=== PATIENT | male | born 1995 | race Caucasian/White ===

== ENCOUNTER 2024-04-03 11:27 | Outpatient (CLI) | payer BC, SELFPAY ==
--- NOTE | ~2024-04-03 | CT_ITS ---
Non-contrast CT scan of the Abdomen and Pelvis Clinical indication: Abdominal pain Technique: 2.5 mm axial scans were obtained through the abdomen and pelvis without intravenous or or al contrast. Dose reduction technique was used on this scan by utilizing automated exposure control a nd iterative reconstruction technique. The dose-length product (DLP) was 391.81 mGy-cm. Findings: Images through the lung bases reveal no abnormalities. There is no evidence of renal or ureteral calculi. The kidneys and the ureters are nondilated. The liver, spleen, pancreas, gallbladder, and adrenals appear normal. There is no aortic aneurysm. There is no evidence of bowel obstruction. Images through the pelvis were performed. There is no evidence of ascites or lymphadenopathy. Urinary bladder unremarkable. No pelvic mass seen. No ascites. Impression: No significant abnormality seen. Reviewed, dictated and finalized at [facility]. Impression: No significant abnormality seen.
== END 2024-04-03 11:28 ==
LOC: MICIMG 11:28
PROVIDERS: PCP Emergency Medicine; Visit Provider Emergency Medicine
DX: R10.9 Unspecified abdominal pain (principal)
CPT/HCPCS: 74176

== ENCOUNTER 2024-05-05 01:23 | Day surgery (SDC) | payer BC, SELFPAY ==
[2024-04-27 09:22] VITALS: BMI 25.1
[2024-05-05 13:23] VITALS: BP 117/80; PULSE 92; RESP 16; TEMP 36; O2SAT 100
[2024-05-05] MEDS: LACTATED RINGERS 1,000 ML 150 ML IV CONT (13:46)
--- NOTE | 2024-05-05 13:54 | WPDANESEPPF ---
Anes - Initial Pre Proc Eval Procedure: Operation Date: 05/05/24 14:30 Proposed Procedures p Esophagogastroduodenoscopy & Colonoscopy - Sacha Vázquez MD Date/Time: 05/05/24 13:54 Surgeon: Sacha Vázquez MD Pre Op Diagnosis: Abdominal pain Patient Data Age: 28 Gender: M Height: 1.73 m Weight: 75.1 kg Last Vital Signs Temp 36.0 C L 05/05/24 13:23 Pulse 92 05/05/24 13:23 Resp 16 05/05/24 13:23 BP 117/80 05/05/24 13:23 Pulse Ox 100 05/05/24 13:23 O2 Del Method Room Air 05/05/24 13:23 Allergies Allergy/AdvReac Type Severity Reaction Status Date / Time No Known Allergies Allergy Verified 05/05/24 13:22 Home Medications Medication Instructions Recorded Confirmed Type sertraline 100 mg tablet See Rx Instructions .Route 12/27/23 05/05/24 Rx .COMPLEX #90 tabs dextroamphetamine-amphetamine 20 20 mg PO DAILY #30 tabs 03/29/24 05/05/24 Rx mg tablet (Adderall) Patient hx anesthesia problems: none Family hx anesthesia problems: none Results Review: All pre-operative results and documents have been reviewed as part of the pre-operative evaluation. [facility] Past Medical History Medical History ADD (attention deficit disorder) Depression Surgical History Surgical History Hx of tonsillectomy (~2008) Family History Family History Father Diabetes mellitus Gout CHF (congestive heart failure) Mother , 64 Diabetes mellitus CHF (congestive heart failure) Kidney failure Sibling Crohn disease Sibling Lupus Depression Social History Social History Social History: Patient drinks 1 cup of caffeine daily Smoking status: Never smoker Tobacco type: cigarettes Smoking end date: 11/29/19 Alcohol intake: never Drinks per week: 6 Alcohol use details: Patient drinks 6 beers per week. Substance use: never Substance use type: does not use Do You Feel Safe in your Home?: Yes Lack of Transportation: No Lack of Food: Never True Current Housing: I Have Housing Concerned About Future Housing: No Difficulty Paying Gas/Electric Bills: No Difficulty Paying for Meds: No Currently Unemployed: No Education: High School Diploma/GED Difficulty w/ Childcare or Family Care: No Living arrangements: with family Additional living arrangements comments: Occupation/Education: occupation Additional occupation/education comments: Apartment Manager -- [employer] Gender identity (if verbalized by the patient): Male Sexual Orientation (if Verbalized by the Patient): Straight or Heterosexual Spiritual care concerns: No Anes - Eval Final PreProcedure Day of Procedure 05/05/24 13:54 Patient weight: normal Heart: regular rate and rhythm Lungs: clear to auscultation Airway: Mallampati scale class II Neurological: alert and oriented Last oral intake: >/= 8 hours ASA classification: II Emergent: no Anesthetic plan: proceed Anesthesia type and monitoring: general GIVS and standard monitoring Results Review: All pre-operative results and documents have been reviewed as part of the pre-operative evaluation. Informed Consent: The patient's anesthetic plan and its attendant risks and benefits were discussed with the patient/family/POA. Questions were solicited and answers provided to the satisfaction of the patient/family/POA.
--- NOTE | 2024-05-05 14:37 | WPDHPUPDATE1 ---
History and Physical Update Update Date/Time: 05/05/24 14:37 History and Physical has been reviewed, including an updated exam of the patient. There are NO changes in the patient's condition. Risks, benefits, and alternatives have been discussed and questions answered. Patient agrees to proceed with procedure.
--- NOTE | 2024-05-05 14:42 | SUR.OPER ---
EGD: START- END-1445 , COLONOSCOPY: START END-1457
[2024-05-05 15:03] VITALS: BP 93/63; PULSE 85; RESP 21; O2SAT 97
[2024-05-05 15:13] VITALS: BP 103/72; PULSE 76; RESP 18; O2SAT 100
[2024-05-05 15:23] VITALS: BP 109/78; PULSE 75; RESP 19; O2SAT 100
== END 2024-05-05 15:33 | disposition home or self-care (01) ==
PROVIDERS: PCP Emergency Medicine; Referring Provider Nurse Practitioner Family; Visit Provider Internal Medicine Gastroenterology
PROC: 0DJ08ZZ Inspection of Upper Intestinal Tract, Via Natural or Artificial Opening Endoscopic (ICD-10-PCS; CPT 43235; principal; 2024-05-05 14:30)
DX: K64.8 Other hemorrhoids (principal); K31.A0 Gastric intestinal metaplasia, unspecified; F98.8 Other specified behavioral and emotional disorders with onset usually occurring in childhood and adolescence; F32.A Depression, unspecified; Z87.891 Personal history of nicotine dependence
CPT/HCPCS: 45378; 43239; 88305; J2001; J2704; J7120